=== PATIENT | male | born 1995 | race Caucasian/White ===

== ENCOUNTER 2020-01-04 15:52 | Emergency (ER) | payer OTHER ==
[~2020-01-04] VITALS: Ht 190.5 cm; Wt 65.8 kg
--- NOTE | 2020-01-04 16:25 | NUR ---
PT DID COCAINE TIL 3 AM NAUSEA AND VOMITING ALL DAY TACHY 140S PIV EST IVF HANGING [employer] STUDENT AT BEDSIDE PT A LITTLE SOB SATTING WELL DENIES CP EKG DONE. NO CARDIAC HX.
[2020-01-04] MEDS ORDERED: LORazepam 2 MG/ML, 1ML IVPush ONE (16:30)
[2020-01-04] MEDS ORDERED: SODIUM CHLORIDE FLUSH 10ML SYR IVF ONE (16:30)
[2020-01-04] MEDS ORDERED: SODIUM CHLORIDE 0.9% 1,000ML IVBOLUS ONE ×2 (16:30→17:30)
[2020-01-04] MEDS ORDERED: ASPIRIN 81 MG TABLET CHEW PO ONE (16:30)
[2020-01-04] MEDS ORDERED: LORazepam 2 MG/ML, 1ML ONE (16:31)
[2020-01-04] MEDS ORDERED: ASPIRIN 81 MG TABLET CHEW ONE (16:31)
[2020-01-04 17:24] LABS: ALANINE AMINOTRANSFERASE 23 U/L (12-78); ALBUMIN 5.3 g/dL (3.4-5.0); ANION GAP 12 mmol/L (5-15); CALCIUM 9.6 mg/dL (8.5-10.1); CHLORIDE 105 mmol/L (98-107); CREATININE 1.07 mg/dL (0.7-1.3)
[2020-01-04 17:25] LABS: BASOPHILS % (AUTO) 0 % (0-1); EOSINOPHILS % (AUTO) 0 % (1-7); LYMPHOCYTES % (AUTO) 8 % (22-44); MEAN CORPUSCULAR HEMOGLOBIN 31.8 pg (27.5-34.5); MEAN CORPUSCULAR HGB CONC 35.2 g/dL (33.2-36.2); MEAN PLATELET VOLUME 8.8 fL (7.4-10.4); MONOCYTES % (AUTO) 8 % (2-9); NEUTROPHILS % (AUTO) 84 % (42-75); PLATELET COUNT 328 x10^3/uL (130-400); RED BLOOD COUNT 5.46 x10^6/uL (4.38-5.82); RED CELL DISTRIBUTION WIDTH 13.1 % (9.4-14.8)
[2020-01-04 17:28] LABS: ALKALINE PHOSPHATASE 85 U/L (45-117); BILIRUBIN,TOTAL 3.9 mg/dL (0.2-1.0); TROPONIN I < 0.015 ng/mL (0.000-0.045)
[2020-01-04 17:51] LABS: MD SCAN
[2020-01-04] MEDS ORDERED: POTASSIUM CHLORIDE 20 MEQ TAB.ER.PRT PO ONE ×2 (18:00)
[2020-01-04] MEDS ORDERED: POTASSIUM CHLORIDE 20 MEQ TAB.ER.PRT ONE ×2 (18:20→18:23)
--- NOTE | 2020-01-04 18:47 | NUR ---
tachy, 2l infused, drinking po, gi cocktail. 2nd trop pending, if neg, dc home per sahm. 60 kdur po per apr verified order verbally w [facility] [address]. denies cp/sob. as
--- NOTE | 2020-01-04 18:55 | NUR ---
report to carrie zuñiga. as
[2020-01-04 18:58] LABS: TROPONIN I < 0.015 ng/mL (0.000-0.045)
[2020-01-04] MEDS ORDERED: MAALOX/HYOSCYAMINE/LIDOCAINE 45 ML BTL PO ONE (19:00)
--- NOTE | 2020-01-04 19:07 | NUR ---
BEDSIDE REPORT RECEIVED FROM SAHARA ADAME FOR TRANSFER OF PATIENT CARE.
[2020-01-04 19:15] VITALS: BP 139/88
--- NOTE | 2020-01-04 19:31 | NUR ---
Patient given discharge instructions and they have confirmed that they understand the instructions. IV removed with tip intact. Patient in stable condition and ambulatory with steady gait from ED.
== END 2020-01-04 19:32 | disposition home or self-care (01) ==
LOC: ED 16:50
DX: R07.2 Precordial pain (principal); F14.10 Cocaine abuse, uncomplicated; F15.10 Other stimulant abuse, uncomplicated; E87.6 Hypokalemia; R07.89 Other chest pain; R11.2 Nausea with vomiting, unspecified; R00.2 Palpitations; R06.02 Shortness of breath; R00.0 Tachycardia, unspecified
CPT/HCPCS: 36415; 71045; 80053; 84484; 85025; 93005; 96361; 96374; 99285; J2060; J7030